=== PATIENT | male | born 1990 | race Caucasian/White ===

== ENCOUNTER 2021-05-20 23:42 | Emergency (ER) | payer SELFPAY | END 2021-05-21 00:02 | disposition left against medical advice (07) | LOC: DL.ED 23:42 | DX: Z53.21 Procedure and treatment not carried out due to patient leaving prior to being seen by health care provider (principal) ==

== ENCOUNTER 2021-06-22 18:38 | Emergency (ER) | payer OTHER, MEDICAID ==
[2021-06-22] MEDS ORDERED: Rocuronium 100 MG/10 ML MDV IV ONE (18:39)
[2021-06-22] MEDS ORDERED: Succinylcholine 200 MG/10 ML MDV IV ONE (18:39)
[2021-06-22] MEDS ORDERED: Etomidate 2 MG/ML 20 ML SDV IVPUSH ONE (18:39)
[2021-06-22 19:10] LABS: ANION GAP 15.8 mEq/L (7-13); CHLORIDE,CL 105 mmol/L (98-107); SODIUM,NA 144 mmol/L (136-145)
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
[2021-06-22 19:25] LABS: PTT,PARTIAL THROMBOPLSTIN TIME 23.4 SEC (22.0-34.0)
[2021-06-22 19:32] LABS: AMPHETAMINES,URINE NEGATIVE (NEGATIVE); BARBITURATES,URINE NEGATIVE (NEGATIVE); BENZODIAZEPINE,URINE NEGATIVE (NEGATIVE); MDMA (ECSTASY), URINE NEGATIVE (NEGATIVE); METHADONE,URINE NEGATIVE (NEGATIVE); METHAMPHETAMINES,URINE NEGATIVE (NEGATIVE); OPIATES,URINE NEGATIVE (NEGATIVE); OXYCODONE,URINE NEGATIVE (NEGATIVE); PHENCYCLIDINE,URINE NEGATIVE (NEGATIVE); TCA,URINE NEGATIVE (NEGATIVE)
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
[2021-06-22] MEDS ORDERED: methylPREDNISolone Sodium Succinate 125 MG/2 ML SDV IVPUSH ONE (19:33)
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
== END 2021-06-22 19:52 ==
LOC: DL.ED 18:38
DX: S32.009A Unspecified fracture of unspecified lumbar vertebra, initial encounter for closed fracture (principal); S00.83XA Contusion of other part of head, initial encounter; V89.2XXA Person injured in unspecified motor-vehicle accident, traffic, initial encounter; Y92.410 Unspecified street and highway as the place of occurrence of the external cause
CPT/HCPCS: 31500; 36415; 43752; 51702; 70450; 70486; 71045; 72125; 72170; 80053; 80305; 80307; 81001; 85025; 85610; 85730; 96374; 99285; J0330; J3490

== ENCOUNTER 2022-08-18 05:57 | Emergency (ER) | payer MEDICAID ==
[2022-08-18] MEDS ORDERED: Amoxicillin/Clavulanate K 875-125 MG Tab PO ONE (18:40)
[2022-08-18] MEDS ORDERED: Diphtheria,Pertussis(Acell),Tetanus Vaccine 0.5 ML Syringe IM ONE (18:40)
== END 2022-08-18 18:55 | disposition home or self-care (01) ==
LOC: DL.ED 05:57
DX: S81.851A Open bite, right lower leg, initial encounter (principal); Z23 Encounter for immunization; W54.0XXA Bitten by dog, initial encounter
CPT/HCPCS: 90471; 90715; 96372; 99282; 99283; A9270

== ENCOUNTER 2022-10-22 14:34 | Emergency (ER) | payer MEDICAID ==
[2022-10-22] MEDS ORDERED: Amoxicillin/Clavulanate K 875-125 MG Tab PO ONE (16:14)
[2022-10-22] MEDS ORDERED: Lidocaine 2% Viscous Solution 15 ML UD PO ONE (16:14)
== END 2022-10-22 16:31 | disposition home or self-care (01) ==
LOC: DL.ED 14:34
DX: K04.7 Periapical abscess without sinus (principal); K02.9 Dental caries, unspecified
CPT/HCPCS: 99282; A9270